=== PATIENT | male | born 1950 | race Caucasian/White ===

== ENCOUNTER → 2018-04-11 | Outpatient (CLI) | payer MEDICARE ==
[~2018-04-11] MED LIST: LORTAB 10/500 51 TAB PO; METHADONE HCL40 MG PO
== END ==
LOC: MHCPAIN 09:58
DX: G89.29 Other chronic pain (principal); M54.12 Radiculopathy, cervical region; M47.812 Spondylosis without myelopathy or radiculopathy, cervical region; M96.1 Postlaminectomy syndrome, not elsewhere classified
CPT/HCPCS: G0463

== ENCOUNTER → 2020-05-08 | Outpatient (CLI) | payer MEDICARE | LOC: COL.RAD 12:35 | DX: M24.151 Other articular cartilage disorders, right hip (principal) | CPT/HCPCS: A9585; Q9967 ==

== ENCOUNTER 2020-08-21 09:19 | Inpatient (IN) | payer MEDICARE ==
[~2020-08-21] VITALS: Ht 170.2 cm; Wt 61.4 kg
[2020-08-21] VITALS (13 sets, daily range): BP systolic 92–130; BP diastolic 45–67; PULSE 89–137; TEMP 97.7
[2020-08-21 10:44] LABS: HEMATOCRIT 37.1 % (42.0-52.0); HEMOGLOBIN 11.2 g/dl (13.5-18.0); MEAN CELL VOLUME 101 fl (80.0-100.0); MEAN CORPUSCULAR HEMOGLOBIN 31 pg (27.0-31.0); MEAN CORPUSCULAR HGB CONC 30 g/dl (33.0-37.0); MEAN PLATELET VOLUME 9.7 fl (7.4-10.4); PLATELET COUNT 278 K/mm3 (130-400); RED BLOOD COUNT 3.67 M/mm3 (4.20-5.60); REDCELL DISTRIBUTION WIDTH-CV 17.4 % (11.5-14.5)
[2020-08-21 10:51] LABS: ALBUMIN 3.6 gm/dL (3.5-5.0); BILIRUBIN,TOTAL 0.6 mg/dL (0.0-1.0); CALCIUM 10.4 mg/dL (8.4-10.2); CREATININE, serum 1.41 (0.66-1.25); POTASSIUM 4.5 mmol/L (3.4-5.0); TOTAL PROTEIN 7.9 gm/dL (6.4-8.2)
[2020-08-21 11:25] LABS: BAND 5 % (0-10); LYMPHOCYTE 5 % (20.0-51.0); METAMYELOCYTE 1 % (0-0); NEUTROPHILS 85 % (42.0-75.2); PLATELET ESTIMATE NORMAL (NORMAL)
[2020-08-21 11:48] LABS: ARTERIAL BLD GAS O2 SATURATION 98.6 % (92-100); ARTERIAL BLD GAS TCO2 CT 9.8; ARTERIAL BLOOD GAS BASE EXCESS -14.5 (-2-2); ARTERIAL BLOOD GAS HCO3 9.2 meq/L (22-26); ARTERIAL BLOOD GAS PO2 109.4 mmHg (80-100); ARTERIAL BLOOD GAS pH 7.34 (7.35-7.45)
[2020-08-21 11:49] LABS: ARTERIAL BLOOD GAS PCO2 17.7 mmHg (35-45)
[2020-08-21] MEDS ORDERED: GLUCOPHAGE XR500 M1 (12:05)
[2020-08-21] MEDS ORDERED: VITAMINC1000TA (12:09)
[2020-08-21] MEDS ORDERED: LIPITOR 80MG80 MG PO (12:10)
[2020-08-21] MEDS ORDERED: VITAMIN D31000 I1 PO (12:10)
[2020-08-21] MEDS ORDERED: CELEXA10 MG PO (12:10)
[2020-08-21] MEDS ORDERED: GLUCOTROL 5M5 MG/TAB PO (12:11)
[2020-08-21] MEDS ORDERED: ASPIRIN 81M81 MG/TA2 PO (12:11)
[2020-08-21] MEDS ORDERED: ULTRAM 50MG TAB50 MG PO (12:12)
[2020-08-21] MEDS ORDERED: SODIUM BICARBO650 MG PO (12:12)
[2020-08-21 15:21] LABS: COLLECTION METHOD CLEAN CATCH
--- NOTE | 2020-08-21 15:45 | NUR ---
PATIENT ADMITED INTO ROOM 323 FROM ER. A&O. VSS. HOSPITALIST Marni AT BEDSIDE. HEAD TO TOE ASSESSMENT COMPLETE. ORIENTED TO ROOM. CALL LIGHT IN REACH. SEE NEW ADMISSION ORDERS.
[2020-08-21 16:06] LABS: PH 5 (5-8); SQUAMOUS EPITHELIAL None Seen /hpf; URINE APPEARANCE Hazy; URINE BACTERIA None Seen /hpf; URINE BILIRUBIN Negative (NEGATIVE); URINE BLOOD Negative (NEGATIVE); URINE COLOR Yellow; URINE GLUCOSE 1+ (NEGATIVE); URINE KETONE 2+ (NEGATIVE); URINE LEUKOCYTE ESTERASE Negative (NEGATIVE); URINE NITRATE Negative (NEGATIVE); URINE PROTEIN(semi-quant) 1+ (NEGATIVE); URINE RBC None Seen /hpf; URINE UROBILINOGEN Negative (NEGATIVE)
--- NOTE | 2020-08-21 18:40 | NUR ---
TELE CALLED AND REPORTED PATIENT APPEARS TO BE IN A-FIB. PATIENT DENIES HX OF A-FIB BUT STATED HE HAS HAD AN ISSUE WITH DVT IN PAST. ASYMPTOMATIC. RT CALLED FOR EKG. VITALS TAKEN AND HOSPITALIST N.P. CALLED. SEE ORDERS.
[2020-08-21 18:43] LABS: ALANINE AMINOTRANSFERASE 28 U/L (4-49); AST,SGOT 43 U/L (15-37); BILIRUBIN,TOTAL 0.6 mg/dL (0.0-1.0)
[2020-08-21 18:53] LABS: INR 1.2 (0.8-3.0); PROTHROMBIN TIME 13.8 SECONDS (9.7-12.8)
[2020-08-21 18:59] LABS: ACETAMINOPHEN < 10 ug/mL (10-30)
--- NOTE | 2020-08-21 19:00 | NUR ---
STARTED SECOND IV SITE INTO LEFT WRIST, 22 GAUGE, ON FIRST ATTEMPT. SEE NEW MED ORDERS. HOSPITALIST AT BEDSIDE. BEDSIDE SHIFT REPORT GIVEN AND URVASHI RAI TAKING OVER CARE.
[2020-08-21 19:18] LABS: MAGNESIUM 2.1 mg/dL (1.6-2.3); PHOSPHOROUS 2.9 mg/dL (2.5-4.5)
--- NOTE | 2020-08-21 19:21 | NUR ---
Cardizem drip initiated per orders. Denies needs at this time
--- NOTE | 2020-08-21 20:00 | NUR ---
Patient in bed, bed bath provided. [place] provided to patient. Patient repositioned at this time. Denies needs at this time.
[2020-08-22] VITALS (19 sets, daily range): BP systolic 101–134; BP diastolic 41–65; PULSE 68–110; TEMP 98.2–99
--- NOTE | 2020-08-22 00:09 | NUR ---
Patient HR 130's and holding, patient in bed resting. Denies feeling palpitations. Contacted Shellie REZA, increased cardizem drip to 10 ml/hr.
--- NOTE | 2020-08-22 05:45 | NUR ---
Patient has done well throughout the night resting between interruptions. Cardizem continues infusing per orders, VS every 30 minutes. Patient repositioned throughout the night. States his back pain/spasms feel a lot better through the night with minimal pain when changining position. Denies further needs at this time. Will report off to day shift.
[2020-08-22 06:51] LABS: MEAN CELL VOLUME 99 fl (80.0-100.0); MEAN CORPUSCULAR HGB CONC 32 g/dl (33.0-37.0); PLATELET COUNT 227 K/mm3 (130-400); RED BLOOD COUNT 2.78 M/mm3 (4.20-5.60); REDCELL DISTRIBUTION WIDTH-CV 17.2 % (11.5-14.5)
[2020-08-22 06:52] LABS: INR 1.5 (0.8-3.0); PROTHROMBIN TIME 16.7 SECONDS (9.7-12.8)
[2020-08-22 06:58] LABS: ALBUMIN 2.6 gm/dL (3.5-5.0); BILIRUBIN,TOTAL 0.5 mg/dL (0.0-1.0); CALCIUM 8.9 mg/dL (8.4-10.2); CREATININE, serum 0.75 (0.66-1.25); MAGNESIUM 1.8 mg/dL (1.6-2.3); POTASSIUM 3.5 mmol/L (3.4-5.0); TOTAL PROTEIN 6.1 gm/dL (6.4-8.2)
[2020-08-22 07:01] LABS: HEMATOCRIT 27.5 % (42.0-52.0); HEMOGLOBIN 8.8 g/dl (13.5-18.0); MEAN CORPUSCULAR HEMOGLOBIN 32 pg (27.0-31.0)
[2020-08-22 07:06] LABS: PRE ALBUMIN 12.9 mg/dL (17.6-36.0)
[2020-08-22 08:28] LABS: BAND 3 % (0-10); EOSINOPHIL 1 % (0-4); LYMPHOCYTE 11 % (20.0-51.0); NEUTROPHILS 75 % (42.0-75.2); PLATELET ESTIMATE NORMAL (NORMAL)
--- NOTE | 2020-08-22 08:47 | NUR ---
Patient resting in bed, his nephew Kashmir at bedside. Patient very thankful for cares, reports feeling so much better. Pain rate 2/10. Oxycodone seems to be managing pain well. Vss, Tele on. Jhon orona per orders. Patient made Npo per cardiology. Held vitamins & insulin at this time since he is NPO. Ekg completed. Echo also ordered. Marly with hospitalist rounded. Tanner rosen.
--- NOTE | 2020-08-22 10:46 | NUR ---
Several visit attempts; Oil Dispenser left card offering God's blessings and the availability of spiritual care at our hospital.
--- NOTE | 2020-08-22 12:47 | NUR ---
& Dr. Randall have rounded. New orders obtained. Cardizem drip stopped & po amiorodone started. Insulin per orders. Patient tolerated a small amount of lunch without nausea. Patient worked with therapy & is sitting up in chair now. Pain elevated with sitting. Roxicodone per orders.
--- NOTE | 2020-08-22 16:14 | NUR ---
Patient continues to sit up in chair. Resting. He was up to stool. Gill Box Operator reports a loose stool. His vitals remains stable off cardizem drip. Tele on. Pain continues to be managed well. Will monitor.
--- NOTE | 2020-08-22 16:31 | NUR ---
Scrum Project Manager attended clinical rounds with the team and Hospitalist advised patient that he would likely need rehab placement upon discharge. Patient is in agreement. SW met with patient to discuss discharge planning. Patient lives alone in [place] and sees Dr. Moy for primary care. Patient obtains medications from [facility] and advised they deliver. Patient has a walker at home and no other DME. Patient states he has had difficulty with ADLS recently and agrees he needs rehab. SW reviewed options with patient and he would like referrals sent to [facility] and [facility]. Patient is interested in completing DPOA-HC and would like to designate his friend, Kashmir and friend, Stefan. DAYO assisted patient in completing form and then DAYO and DAYO Núñez provided witness signature. DAYO placed copy in chart and provided original and copies to patient. DAYO contacted Josephine [facility] Director to give referral. DAYO then contacted Raciel at [facility] and faxed referral. DAYO also faxed clinicals to [facility] as patient has [employer] and will need prior authorization. Discharge Plan: Pending screens from [facility] and [facility].
--- NOTE | 2020-08-22 18:28 | NUR ---
Patient sitting up, visiting on the phone. Patient was up to the commode. loose stool. Slow on his feet. Did well with dinner. Denies nausea. Pain continues to be managed. Will report off to night nurse
--- NOTE | 2020-08-22 19:22 | NUR ---
Awake, alert, oriented x 4, able to verbalize needs, talkative, notes improvement w/i the last 3 days per patient, telemetry in use, call altman w/i reach, no s/s of hypo/hyper glycemia, states that pain is well controlled with current pain regimen, updated on plan of care.
[2020-08-23 04:03] VITALS: BP 130/73; PULSE 99; TEMP 98.4
[2020-08-23 06:53] LABS: MEAN CORPUSCULAR HGB CONC 33 g/dl (33.0-37.0); MEAN PLATELET VOLUME 10.1 fl (7.4-10.4); PLATELET COUNT 238 K/mm3 (130-400); RED BLOOD COUNT 2.81 M/mm3 (4.20-5.60); REDCELL DISTRIBUTION WIDTH-CV 17.2 % (11.5-14.5)
[2020-08-23 06:59] LABS: HEMATOCRIT 26.3 % (42.0-52.0); HEMOGLOBIN 8.6 g/dl (13.5-18.0); MEAN CELL VOLUME 94 fl (80.0-100.0); MEAN CORPUSCULAR HEMOGLOBIN 31 pg (27.0-31.0)
[2020-08-23 07:01] LABS: INR 1.5 (0.8-3.0); PROTHROMBIN TIME 17.1 SECONDS (9.7-12.8)
[2020-08-23 07:08] LABS: ALBUMIN 2.6 gm/dL (3.5-5.0); BILIRUBIN,TOTAL 0.7 mg/dL (0.0-1.0); CALCIUM 9.4 mg/dL (8.4-10.2); CREATININE, serum 0.72 (0.66-1.25); MAGNESIUM 1.6 mg/dL (1.6-2.3); PHOSPHOROUS 1.4 mg/dL (2.5-4.5); POTASSIUM 3.2 mmol/L (3.4-5.0); TOTAL PROTEIN 6.1 gm/dL (6.4-8.2)
[2020-08-23 07:52] VITALS: BP 114/61; PULSE 99; TEMP 99.5
[2020-08-23 07:57] LABS: ANISOCYTOSIS 1+; HYPOCHROMIA 2+; LYMPHOCYTE 9 % (20.0-51.0); MYELOCYTE 2 % (0-0); NEUTROPHILS 78 % (42.0-75.2); PLATELET ESTIMATE NORMAL (NORMAL)
--- NOTE | 2020-08-23 10:12 | NUR ---
Patient resting in bed. He has worked with therapy & ambulated in halls with the walker & did well. Patient ate well for breakfast. denies nausea. Pain increased, roxicodone for pain. Hospitalsit team rounded, orders obtained & plan of care reviewed. Patient understanding and continues to be thankful for cares given. Will continue to montior.
[2020-08-23 12:15] VITALS: BP 124/58; PULSE 106; TEMP 99.6
--- NOTE | 2020-08-23 14:41 | NUR ---
Patient resting in bed. Awake watching softball. Repositioned for comfort. Reports elevated pain in his back. Requesting roxicodone. Medication per orders. Patient had ice cream & peaches for lunch. Treated for elevated blood sugar per orders. Will monitor.
[2020-08-23 15:42] VITALS: BP 128/67; PULSE 100; TEMP 98.4
--- NOTE | 2020-08-23 18:25 | NUR ---
Patient resting in bed. Eating dinner. insulin per scale. roxicodone manages pain. Will report off to nightnurse
--- NOTE | 2020-08-23 19:54 | NUR ---
Awake, alert, oriented x 4, able to verbablize all needs, appetite improved, pain managment ongoing, updated on plan of care.
[2020-08-23 20:17] VITALS: BP 115/61; PULSE 46; PULSE 87; TEMP 98.9
[2020-08-23 23:57] VITALS: BP 139/76; PULSE 95; TEMP 98.7
[2020-08-24 04:32] VITALS: BP 132/66; PULSE 91; TEMP 99.5
[2020-08-24 07:40] VITALS: BP 136/70; PULSE 93; TEMP 98.9
--- NOTE | 2020-08-24 08:20 | NUR ---
Patient sitting up in bed eating breakfast. denies nausea. Pain managed at this time. awaiting lab results. iv per orders. Will monito.r
[2020-08-24 08:29] LABS: MEAN CELL VOLUME 93 fl (80.0-100.0); MEAN CORPUSCULAR HGB CONC 34 g/dl (33.0-37.0); MEAN PLATELET VOLUME 10.2 fl (7.4-10.4); PLATELET COUNT 228 K/mm3 (130-400); RED BLOOD COUNT 2.84 M/mm3 (4.20-5.60); REDCELL DISTRIBUTION WIDTH-CV 17.4 % (11.5-14.5)
[2020-08-24 08:30] LABS: HEMATOCRIT 26.4 % (42.0-52.0); HEMOGLOBIN 8.9 g/dl (13.5-18.0); MEAN CORPUSCULAR HEMOGLOBIN 31 pg (27.0-31.0)
[2020-08-24 08:40] LABS: ALBUMIN 2.6 gm/dL (3.5-5.0); BILIRUBIN,TOTAL 0.5 mg/dL (0.0-1.0); CALCIUM 8.9 mg/dL (8.4-10.2); CREATININE, serum 0.63 (0.66-1.25); PHOSPHOROUS 2.3 mg/dL (2.5-4.5); POTASSIUM 3.1 mmol/L (3.4-5.0); TOTAL PROTEIN 6.1 gm/dL (6.4-8.2)
[2020-08-24 08:41] LABS: ANISOCYTOSIS 2+; EOSINOPHIL 1 % (0-4); LYMPHOCYTE 14 % (20.0-51.0); METAMYELOCYTE 1 % (0-0); MYELOCYTE 1 % (0-0); NEUTROPHILS 78 % (42.0-75.2); PLATELET ESTIMATE NORMAL (NORMAL)
[2020-08-24 11:24] VITALS: BP 90/55; PULSE 97; TEMP 98.1
[2020-08-24 15:42] VITALS: BP 112/60; PULSE 106; TEMP 98.7
--- NOTE | 2020-08-24 17:17 | NUR ---
Patient resting in bed. He had a few episodes of incontinence. [place] provided. Susana Shahid was notifed of patient elevated blood sugars. Increased dose of insulin given. Patient ate well for dinner. He had a light lunch, but overall great PO intake. Patient reported less relief this afternoon after oxycodone. Lidoderm patch & flexril started after discussed this with Susana Shahid & patient reported it did give relief to his chronic back pain. Iv continues per orders. K+ replaced today per orders. Patient was able to ambulate in halls with therapy. Refused to Sit up in chair reports it is too uncomfortable for his back. Patient was repostioned in bed throughoutshift. Will report off to nightnurse
--- NOTE | 2020-08-24 20:55 | NUR ---
PT IN BED. USES URINAL WITHOUT PROBLEM. IS ALERT AND ORIENTED X3. IVF INFUSING TO LEFT WRIST WITHOUT PROBLEM. TAKES HS MEDS INCLUDING OXYCODONE 5MG PO FOR BACK PAIN. ASSISTED WITH REPOSITIONING IN BED.
[2020-08-24 20:59] VITALS: BP 137/77; PULSE 108; TEMP 98
--- NOTE | 2020-08-24 23:27 | NUR ---
PT ASKING FOR MORE PAIN MEDS. TOO EARLY FOR OXYCODONE, MORPHINE 2MG IVP GIVEN AT THIS TIME. REPOSITIONED IN BED.
[2020-08-24 23:34] VITALS: BP 140/68; PULSE 98; TEMP 97.9
--- NOTE | 2020-08-25 02:01 | NUR ---
PT COMPLAINS OF BACK PAIN. OXYCODONE 5MG PO GIVEN AT THIS TIME.
[2020-08-25 05:30] VITALS: BP 134/64; PULSE 87; TEMP 98.2
--- NOTE | 2020-08-25 06:35 | NUR ---
MEDICATED WITH OXYCODONE 5MG PO FOR BACK PAIN. USES URINAL WITHOUT PROBLEM.
[2020-08-25 07:13] LABS: MEAN CELL VOLUME 96 fl (80.0-100.0); MEAN CORPUSCULAR HGB CONC 33 g/dl (33.0-37.0); MEAN PLATELET VOLUME 10.4 fl (7.4-10.4); PLATELET COUNT 236 K/mm3 (130-400); RED BLOOD COUNT 2.54 M/mm3 (4.20-5.60); REDCELL DISTRIBUTION WIDTH-CV 17.5 % (11.5-14.5)
[2020-08-25 07:20] LABS: HEMATOCRIT 24.3 % (42.0-52.0); HEMOGLOBIN 7.9 g/dl (13.5-18.0); MEAN CORPUSCULAR HEMOGLOBIN 31 pg (27.0-31.0)
[2020-08-25 07:27] LABS: ALBUMIN 2.3 gm/dL (3.5-5.0); BILIRUBIN,TOTAL 0.4 mg/dL (0.0-1.0); CALCIUM 8.6 mg/dL (8.4-10.2); CREATININE, serum 0.62 (0.66-1.25); MAGNESIUM 1.7 mg/dL (1.6-2.3); POTASSIUM 3.1 mmol/L (3.4-5.0); TOTAL PROTEIN 5.5 gm/dL (6.4-8.2)
[2020-08-25 08:10] VITALS: BP 138/86; PULSE 102; TEMP 97.9
[2020-08-25 08:17] LABS: ANISOCYTOSIS 2+; BAND 6 % (0-10); EOSINOPHIL 6 % (0-4); LYMPHOCYTE 21 % (20.0-51.0); NEUTROPHILS 64 % (42.0-75.2); PLATELET ESTIMATE NORMAL (NORMAL)
--- NOTE | 2020-08-25 08:40 | NUR ---
Patient in bed eating breakfast. Alert and oriented x 3. Assessment complete. Denies pain at this time. Heels elevated on pillows, SCDS to BLE. Acetadote and fluids infusing per orders. Denies further needs at this time.
--- NOTE | 2020-08-25 08:57 | NUR ---
Dr. Keith in to see patient.
[2020-08-25 12:16] VITALS: BP 127/56; PULSE 94; TEMP 97.9
[2020-08-25 12:25] VITALS: BP 145/74; PULSE 105; TEMP 98.7
[2020-08-25 15:38] VITALS: BP 119/57; PULSE 98; TEMP 98.9
[2020-08-25 18:07] LABS: HEMATOCRIT 25.4 % (42.0-52.0); HEMOGLOBIN 8.2 g/dl (13.5-18.0)
--- NOTE | 2020-08-25 18:54 | NUR ---
Patient doing well throughout the day, repositioned throughout the day. IV initiated to left forarm. Medications given per orders for back pain. Patient denies further needs at this time. Will report off to night stocker.
[2020-08-25 20:00] VITALS: BP 114/59; PULSE 105; TEMP 99.8
--- NOTE | 2020-08-25 23:12 | NUR ---
PT AWAKE, ALERT AND ORIENTED X4. HAS IVF TO RT WRIST AND ACETADOTE TO LEFT FOREARM. VOIDING PER URINAL WITH OCCASIONAL INCONTINENCE EPISODES. MEDICATED WITH OXYCODONE 5MG PO FOR BACK PAIN.
[2020-08-26] VITALS (7 sets, daily range): BP systolic 106–130; BP diastolic 53–66; PULSE 88–108; TEMP 97.8–99.9
--- NOTE | 2020-08-26 04:30 | NUR ---
PT HAS BEEN AWAKE MOST OF NIGHT. MEDICATED WITH OXYCODONE 5MG PO AT THIS TIME. IVF AND ACETADOTE DC'D.
[2020-08-26 06:17] LABS: MEAN CELL VOLUME 95 fl (80.0-100.0); MEAN CORPUSCULAR HGB CONC 33 g/dl (33.0-37.0); MEAN PLATELET VOLUME 10.5 fl (7.4-10.4); PLATELET COUNT 270 K/mm3 (130-400); RED BLOOD COUNT 2.51 M/mm3 (4.20-5.60); REDCELL DISTRIBUTION WIDTH-CV 17.9 % (11.5-14.5)
[2020-08-26 06:24] LABS: HEMATOCRIT 23.9 % (42.0-52.0); HEMOGLOBIN 7.8 g/dl (13.5-18.0); MEAN CORPUSCULAR HEMOGLOBIN 31 pg (27.0-31.0)
[2020-08-26 06:25] LABS: ALBUMIN 2.3 gm/dL (3.5-5.0); BILIRUBIN,TOTAL 0.2 mg/dL (0.0-1.0); CALCIUM 8.7 mg/dL (8.4-10.2); CREATININE, serum 0.59 (0.66-1.25); MAGNESIUM 1.6 mg/dL (1.6-2.3); PHOSPHOROUS 3.7 mg/dL (2.5-4.5); POTASSIUM 3.5 mmol/L (3.4-5.0); TOTAL PROTEIN 5.6 gm/dL (6.4-8.2)
[2020-08-26 08:03] LABS: BAND 4 % (0-10); EOSINOPHIL 1 % (0-4); LYMPHOCYTE 16 % (20.0-51.0); METAMYELOCYTE 1 % (0-0); NEUTROPHILS 67 % (42.0-75.2); NUCLEATED RED BLOOD CELL 1 (0-6); PLATELET ESTIMATE NORMAL (NORMAL)
--- NOTE | 2020-08-26 09:10 | NUR ---
Patient complains of pain 4/10 to back. Medications given per orders. Denies further needs at this time.
--- NOTE | 2020-08-26 12:39 | NUR ---
Liaison Officer collaborated with [facility] Director who advised they cannot take patient at this time. DAYO contacted [facility] and was advised patient has authorization until 08/29 for discharge to [facility] (auth ID #[id number], [facility] ID #[id number]). DAYO faxed clinical updates to Raciel who advised they can accept as long as patient has insurance auth. DAYO met with patient who is agreeable to discharge to [facility]. Patient to discharge tomorrow. Discharge Plan: [facility]
[2020-08-26 12:42] LABS: ALBUMIN 2.3 gm/dL (3.5-5.0); BILIRUBIN UNCONJUGATED 0.1 mg/dL (0.0-1.1); BILIRUBIN,DIRECT 0.1 mg/dL (0.0-0.4); BILIRUBIN,TOTAL 0.2 mg/dL (0.0-1.0); TOTAL PROTEIN 5.3 gm/dL (6.4-8.2)
--- NOTE | 2020-08-26 18:19 | NUR ---
Patient has done well throughout the day, pain medication given for lower back pain throughout the day. Potassium infusing per orders. Patient encouraged to increase activity. Denies needs at this time. Will report off to night baker
--- NOTE | 2020-08-26 20:00 | NUR ---
Pt. sitting up in bed at this time. Pt. is A&OX3, assessment complete. INT to lt. wrist patent. INT to lt. forearm patent. Pt. denies pain or other needs, call light within reach.
[2020-08-27 04:28] VITALS: BP 121/68; PULSE 87; TEMP 98.4
[2020-08-27 05:51] LABS: MEAN CELL VOLUME 97 fl (80.0-100.0); MEAN CORPUSCULAR HGB CONC 32 g/dl (33.0-37.0); MEAN PLATELET VOLUME 10.2 fl (7.4-10.4); PLATELET COUNT 315 K/mm3 (130-400); RED BLOOD COUNT 2.44 M/mm3 (4.20-5.60); REDCELL DISTRIBUTION WIDTH-CV 18.4 % (11.5-14.5)
[2020-08-27 05:55] LABS: HEMATOCRIT 23.6 % (42.0-52.0); HEMOGLOBIN 7.5 g/dl (13.5-18.0); MEAN CORPUSCULAR HEMOGLOBIN 31 pg (27.0-31.0)
[2020-08-27 06:05] LABS: CALCIUM 9.3 mg/dL (8.4-10.2); CREATININE, serum 0.71 (0.66-1.25)
[2020-08-27 06:15] LABS: ANISOCYTOSIS 1+; BAND 2 % (0-10); BASOPHIL 2 % (0-2); EOSINOPHIL 4 % (0-4); HYPOCHROMIA 2+; LYMPHOCYTE 12 % (20.0-51.0); NEUTROPHILS 71 % (42.0-75.2); PLATELET ESTIMATE NORMAL (NORMAL)
--- NOTE | 2020-08-27 07:26 | NUR ---
Patient up ambulating with PT, ambulates with steady gait and walker.
[2020-08-27] MEDS ORDERED: PACERONE400 MG PO (07:31)
[2020-08-27] MEDS ORDERED: ELIQUIS 5MG PO (07:31)
[2020-08-27] MEDS ORDERED: BLUE-EMU LIDOC1 EACH TP (07:32)
[2020-08-27 07:57] VITALS: BP 107/55; PULSE 87; TEMP 98.2
--- NOTE | 2020-08-27 08:30 | NUR ---
Patient in bed resting. Alert and oriented x 3, assessment complete. Patient states pain to lower back 4/10; medications given per orders. INT to left forarm and left wrist without complications. Patient denies needs at this time.
[2020-08-27 11:08] VITALS: BP 116/59; PULSE 93; TEMP 97.3
--- NOTE | 2020-08-27 13:09 | NUR ---
Patient up ambuating with PT.
--- NOTE | 2020-08-27 14:25 | NUR ---
Cosmetic Manager contacted Raciel at [facility] to advise that patient is not ready for discharge at this time, possibly tomorrow. SW faxed clinical updates.
[2020-08-27 15:34] VITALS: BP 122/8; PULSE 91; TEMP 97.7
--- NOTE | 2020-08-27 18:27 | NUR ---
Patient doing well throughout the day. Encouraged increased activity. Patient states pain 2/10 for lower back pain, educated patient on pain medications. Patient denies other needs at this time. Will report off to material handler 2nd shift.
[2020-08-27 19:07] LABS: HEMATOCRIT 26.4 % (42.0-52.0); HEMOGLOBIN 8.4 g/dl (13.5-18.0)
[2020-08-27 20:40] VITALS: BP 115/53; PULSE 90; TEMP 98.3
[2020-08-28 00:13] VITALS: BP 114/60; PULSE 90; TEMP 99.1
[2020-08-28 03:53] VITALS: BP 109/66; PULSE 85; TEMP 98
[2020-08-28 06:43] LABS: MEAN CELL VOLUME 98 fl (80.0-100.0); MEAN CORPUSCULAR HGB CONC 31 g/dl (33.0-37.0); MEAN PLATELET VOLUME 10.2 fl (7.4-10.4); PLATELET COUNT 364 K/mm3 (130-400); RED BLOOD COUNT 2.49 M/mm3 (4.20-5.60); REDCELL DISTRIBUTION WIDTH-CV 18.6 % (11.5-14.5)
[2020-08-28 06:49] LABS: HEMATOCRIT 24.3 % (42.0-52.0); HEMOGLOBIN 7.6 g/dl (13.5-18.0); MEAN CORPUSCULAR HEMOGLOBIN 31 pg (27.0-31.0)
[2020-08-28 06:50] LABS: CALCIUM 9.7 mg/dL (8.4-10.2); CREATININE, serum 0.82 (0.66-1.25); POTASSIUM 4.4 mmol/L (3.4-5.0)
--- NOTE | 2020-08-28 07:22 | NUR ---
CHANGE OF SHIFT REPORT GIVEN TO DAY SHIFT NURSEAMADEO RN
[2020-08-28 08:06] LABS: ANISOCYTOSIS 2+; EOSINOPHIL 3 % (0-4); LYMPHOCYTE 10 % (20.0-51.0); NEUTROPHILS 68 % (42.0-75.2); PLATELET ESTIMATE NORMAL (NORMAL)
[2020-08-28 08:07] LABS: HYPOCHROMIA 2+
[2020-08-28 08:28] VITALS: BP 119/66; PULSE 80; TEMP 98.6
[2020-08-28] MEDS ORDERED: ROXICODONE 55 MG/TAB PO (08:41)
[2020-08-28] MEDS ORDERED: LEVEMIR100 U/ML SQ (08:42)
[2020-08-28] MEDS ORDERED: NOVOLOG 100U100 U/M1 SQ (08:42)
[2020-08-28] MEDS ORDERED: FLEXERIL 1010 MG/TAB PO (08:42)
--- NOTE | 2020-08-28 09:00 | NUR ---
Pt doing well at this time. He does have pain complaints in his lower back and left hip. He reports that at home it was 10/10, but that he would like to get it to a 1 or 2. Now he reports that it is a 3/10, but states that he is doing okay. Pt is aware that he will be transferring today. Unsure of time as of now. Pt has had breakfast, denies any needs, will continue to monitor
--- NOTE | 2020-08-28 11:20 | NUR ---
Pt up walking with PT. Transportation will arrive around 3:30 to mixing picker tender pt, pt aware
--- NOTE | 2020-08-28 11:38 | NUR ---
Bike Assembler attended clinical rounds with the team and patient to discharge to [facility]. DAYO contacted Raciel at [facility] and set transport time for 1530. DAYO provided transport time to patient who advised he will call his brother to notify him of discharge time. DAYO presented and reviewed IM with patient who verbalized understanding and provided signature. DAYO placed original in chart and gave copy to patient. DAYO faxed discharge orders to Raciel at [facility].
[2020-08-28 13:00] VITALS: BP 135/68; PULSE 95
[2020-08-28 15:11] VITALS: BP 135/68; PULSE 95; TEMP 98.6
--- NOTE | 2020-08-28 15:34 | NUR ---
Transportation arrived around 1500 for pt. Pt did not want to get dressed, pt left in a gown. Report called
== END 2020-08-28 15:25 | DRG 551 ==
LOC: COL.ER 09:19 → SURG 13:23
PROVIDERS: Family Medicine; Nurse Practitioner Family; Physician Assistant; Student in an Organized Health Care Education/Training Program; ADMIT Internal Medicine
DX: M48.061 Spinal stenosis, lumbar region without neurogenic claudication (principal); E43 Unspecified severe protein-calorie malnutrition; E87.2 Acidosis; E87.1 Hypo-osmolality and hyponatremia; G72.89 Other specified myopathies; T39.1X1A Poisoning by 4-Aminophenol derivatives, accidental (unintentional), initial encounter; M54.9 Dorsalgia, unspecified; D64.9 Anemia, unspecified; E87.6 Hypokalemia; I48.91 Unspecified atrial fibrillation; F32.9 Major depressive disorder, single episode, unspecified; E83.52 Hypercalcemia; F17.210 Nicotine dependence, cigarettes, uncomplicated; E11.9 Type 2 diabetes mellitus without complications; Z98.1 Arthrodesis status; G89.29 Other chronic pain; Z86.718 Personal history of other venous thrombosis and embolism; Z79.84 Long term (current) use of oral hypoglycemic drugs; Z79.82 Long term (current) use of aspirin; I25.2 Old myocardial infarction
CPT/HCPCS: 99223-AI; 99232-AI; 99233-AI; 99239; J0132; J0692; J1650; J1815; J2270; J2405; J3360; J3475; J3480; J7030; J7070; J7120

== ENCOUNTER → 2020-09-04 | Outpatient (REF) ==
[~2020-09-04] MED LIST changes: +ASPIRIN 81M81 MG/TA2 PO; +BLUE-EMU LIDOC1 EACH TP; +CELEXA10 MG PO; +ELIQUIS 5MG PO; +FLEXERIL 1010 MG/TAB PO; +GLUCOPHAGE XR500 M1; +GLUCOTROL 5M5 MG/TAB PO; +LEVEMIR100 U/ML SQ; +LIPITOR 80MG80 MG PO; +NOVOLOG 100U100 U/M1 SQ; +PACERONE400 MG PO; +ROXICODONE 55 MG/TAB PO; +SODIUM BICARBO650 MG PO; +ULTRAM 50MG TAB50 MG PO; +VITAMIN D31000 I1 PO; +VITAMINC1000TA
[2020-09-04 16:08] LABS: BASO # 0.1 (0.0-0.2); EOS # 0.2 (0.0-0.7); EOS % 1.9 % (0-4.0); GRAN % 71.1 % (42.2-75.2); LYMPH % 18.1 % (20.0-51.0); MEAN CELL VOLUME 98 fl (80.0-100.0); MEAN CORPUSCULAR HGB CONC 31 g/dl (33.0-37.0); MEAN PLATELET VOLUME 9.4 fl (7.4-10.4); MONO # 0.8 (0.1-0.6); MONO % 7.3 % (1.7-9.3); PLATELET COUNT 530 K/mm3 (130-400); RED BLOOD COUNT 3.15 M/mm3 (4.20-5.60); REDCELL DISTRIBUTION WIDTH-CV 17.7 % (11.5-14.5)
[2020-09-04 16:10] LABS: HEMATOCRIT 30.9 % (42.0-52.0); HEMOGLOBIN 9.6 g/dl (13.5-18.0); MEAN CORPUSCULAR HEMOGLOBIN 30 pg (27.0-31.0)
[2020-09-04 16:20] LABS: ALBUMIN 3.8 gm/dL (3.5-5.0); BILIRUBIN,TOTAL 0.7 mg/dL (0.0-1.0); CALCIUM 9.9 mg/dL (8.4-10.2); CREATININE, serum 0.87 (0.66-1.25); POTASSIUM 4.8 mmol/L (3.4-5.0); TOTAL PROTEIN 8.8 gm/dL (6.4-8.2)
== END ==
LOC: ZLAB.STJ 16:02
PROVIDERS: Internal Medicine
DX: D64.9 Anemia, unspecified (principal)

== ENCOUNTER 2020-09-23 03:49 | Emergency (ER) | payer MEDICARE ==
[~2020-09-23] VITALS: Ht 167.6 cm; Wt 61.4 kg
[2020-09-23 03:52] VITALS: TEMP 98.1
[2020-09-23 06:30] VITALS: BP 110/60; PULSE 63
== END 2020-09-23 06:30 | disposition home or self-care (01) ==
LOC: COL.ER 03:49
DX: S09.90XA Unspecified injury of head, initial encounter (principal); S01.81XA Laceration without foreign body of other part of head, initial encounter; I48.91 Unspecified atrial fibrillation; I25.2 Old myocardial infarction; Z79.01 Long term (current) use of anticoagulants; W06.XXXA Fall from bed, initial encounter; W22.8XXA Striking against or struck by other objects, initial encounter; Y92.89 Other specified places as the place of occurrence of the external cause

== ENCOUNTER → 2020-09-30 | Outpatient (CLI) | payer MEDICARE ==
[2020-09-30 15:04] LABS: COLLECTION METHOD CLEAN CATCH
[2020-09-30 15:13] LABS: AMORPHOUS CRYSTAL Present /uL; GRANULAR CAST >12 /lpf; MUCOUS Present /lpf; PH 5 (5-8); SQUAMOUS EPITHELIAL 0-2 /hpf; URINE APPEARANCE Cloudy; URINE BACTERIA Occasional /hpf; URINE BILIRUBIN Positive (NEGATIVE); URINE BLOOD Negative (NEGATIVE); URINE COLOR Amber; URINE GLUCOSE 1+ (NEGATIVE); URINE KETONE Negative (NEGATIVE); URINE LEUKOCYTE ESTERASE Negative (NEGATIVE); URINE NITRATE Negative (NEGATIVE); URINE PROTEIN(semi-quant) 3+ (NEGATIVE)
== END ==
LOC: ZLAB.STJ 14:56
PROVIDERS: Internal Medicine
DX: R31.9 Hematuria, unspecified (principal)